=== PATIENT | female | born 1965 | race Caucasian/White ===

== ENCOUNTER 2023-10-31 09:09 | Outpatient (CLI) | payer OTHER, SELFPAY ==
--- NOTE | 2023-10-31 09:20 | XR_ITS ---
WS: [id number] KNEE RIGHT TECHNIQUE: 2 views of the right knee CLINICAL INFORMATION: KNEE PAIN COMPARISON: None. FINDINGS: Moderate to advanced tricompartmental arthritis worse in the medial joint compartment. Hypertrophic c hanges along the joint line. Hypertrophic patella. Advanced degenerative narrowing at the patellofemo ral articulation. Small suprapatellar effusion. Prepatellar soft tissue edema. Vascular calcification .. 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 Kellgren-Paramjit Classification: grade 4 (severe): large osteophytes, marked narrowing of joint spac e, severe sclerosis and definite deformity of bone ends
--- NOTE | 2023-10-31 09:20 | XR_ITS ---
WS: [id number] LUMBAR SPINE TECHNIQUE: 3 views of the lumbar spine CLINICAL INFORMATION: BACK PAIN COMPARISON: None. FINDINGS: Five [id number]-bhw-hwyzhxh lumbar vertebral bodies. Mild lumbar curve convex RIGHT. Osteopenia. Cholecystectomy clips. Pelvic phleboliths. Disc space leslie rowing worse L4-L5 and L5-S1. Moderate facet arthropathy in the lower lumbar spine. Slight retrolisth esis L3 on L4. Mild chronic anterior wedging in the lower thoracic spine. IMPRESSION: 1. 5 nonrib-bearing lumbar vertebral bodies. L5 is partially sacralized. 2. Disc space narrowing worse at L4-L5 and L5-S1. 3. Slight retrolisthesis L3 on L4. 4. Moderate facet arthropathy L4-L5 and L5-S1.
== END 2023-10-31 09:10 | disposition home or self-care (01) ==
LOC: RAD 09:15
PROVIDERS: Visit Provider Dermatology
DX: Z02.71 Encounter for disability determination (principal); M43.16 Spondylolisthesis, lumbar region; M47.817 Spondylosis without myelopathy or radiculopathy, lumbosacral region; M51.87 Other intervertebral disc disorders, lumbosacral region; M17.11 Unilateral primary osteoarthritis, right knee
CPT/HCPCS: 72100; 73560

== ENCOUNTER 2024-06-25 10:38 | Outpatient (CLI) | payer SELFPAY ==
--- NOTE | 2024-06-25 10:46 | XR_ITS ---
WS: [id number] XR chest 2V* [id number] REASON FOR EXAM: SHORTNESS OF BREATH FINDINGS: Moderate tortuosity and ectasia of the thoracic aorta. Normal heart size. Calcified granulomas disease in both hemithoraces. There are coarse reticular interstitial lung opacities in the medial right lower lung field on the PA view. Findings may be present posteriorly in the right lower lobe on the lateral. Chronicity of this abnormality is unknown without prior examinations for comparison. Moderate degenerative spondylosis in the thoracic spine. XR/XR chest 2V* [id number] IMPRESSION: Right lower lung abnormality of uncertain chronicity as above. This could repre sent a subacute pneumonitis.
== END 2024-06-25 10:39 | disposition home or self-care (01) ==
PROVIDERS: Visit Provider Nurse Practitioner Family
DX: J84.10 Pulmonary fibrosis, unspecified (principal); R91.8 Other nonspecific abnormal finding of lung field; M47.894 Other spondylosis, thoracic region; I77.810 Thoracic aortic ectasia
CPT/HCPCS: 71046

== ENCOUNTER 2024-09-01 10:59 | Outpatient (CLI) | payer MEDICAID, SELFPAY ==
--- NOTE | 2024-09-01 11:11 | XR_ITS ---
WS: [id number] XR chest 2V* [id number] REASON FOR EXAM: abnormal chst radiograph FINDINGS: Compared to the examination of 06/25/2024, the right lower lung opacities have resolved. Presumably th is represented a pneumonitis. No other interval change or new finding compared to 06/25/2024. XR/XR chest 2V* [id number] IMPRESSION: Previous abnormality resolved. No new abnormality.
== END 2024-09-01 11:00 | disposition home or self-care (01) ==
LOC: RAD 11:04
PROVIDERS: PCP Nurse Practitioner Family; Visit Provider Nurse Practitioner Family
DX: R91.8 Other nonspecific abnormal finding of lung field (principal)
CPT/HCPCS: 71046

== ENCOUNTER 2025-07-01 23:00 | Inpatient (IN) | payer MEDICAID, SELFPAY ==
[2025-07-01 23:03] VITALS: BP 117/71; PULSE 100; RESP 16; TEMP 36.6; O2SAT 97; BMI 53.7
--- OUTSIDE RECORDS SUMMARY | 2025-07-01 23:06 | XMS_ITS | Data Portability ---
Author Organization [facility] Address [address] [address] Care Team Providers Care Vocational Instructor Name Role Phone VELMA DUARTE Primary Care Provider [phone] Assessment No assessment recorded. Plan of Treatment Reminders Order Date Submit Date Provider Last Modified By Organization Details Last Modified Time Details Appointments None recorded. Lab HbA1c (hemoglobin A1c), blood [email or web address] [place] [address] Lab, [address] [facility], [facility] [place], [address], 12:45:28 iron + TIBC + ferritin, serum 2024 025 [facility], [address] [place] [address], [facility] [address] [place], [address], 06:00:31 HbA1c (hemoglobin A1c), blood 2024 025 [facility], [address] [facility], [facility] [address], [address], 5 08:36:24 lipid panel, blood 2024 025 [facility], [address] [facility], [facility] [place], [address], 5 13:24:17 TSH, serum or plasma 2024 025 [facility], [address] [facility], [address], [place], [address], 08:36:25 vitamin B12, serum 2024 025 [facility], [address] [facility] [address], [address], [place], [address], 06:00:33 CMP, serum or plasma 2024 025 [facility], [address], [address], [place], [address], 13:24:14 CBC 2024 025 [facility], [address] [facility], [address], [place], [address], 12:58:45 Referral pain management referral 2024 025 [email or web address] 2 Gerald Arellano , [address] [place] [address], [address], 13:52:05 physical therapist referral 2024 025 [email or web address] 2 [facility], [address] [facility], [address], [place], [address], 14:37:38 pain management referral 2024 025 [email or web address] 2 Gerald Golden , [address] [place] [address], [address], 15:08:43 Procedures None recorded. Surgeries None recorded. Imaging None recorded. Medication Orders gabapentin 300 mg capsule 2024 025 [facility], [address], [place], [address], 12:04:57 Zepbound 2.5 mg/0.5 mL subcutaneou s pen injector 2024 025 [facility], [address], [place], [address], 10:15:52 Patient TargetsNo targets recorded. Patient InstructionsNo instructions recorded. Reason for Referral Pain Management Referral for Lumbar radiculopathy Referring Physician: Velma Duarte [facility], Encounter Date: 01/19/2025 Pain Management Referral for Chronic primary low back pain Referring Physician: Velma Duarte [facility], Encounter Date: 04/29/2025 Physical Therapist Referral for Chronic primary low back pain Referring Physician: Velma Duarte [facility], Encounter Date: 04/29/2025 Results Created Date Observation Date Name Description Value Unit Range Abnormal Flag Note LastModifiedBy Organization Detail LastModifiedTime 01/20/2001/19/2025 CBC WBC 8.7 x10 4.0-10 .5 Not Available [facility] [address] [facility] 1, [place], [address], 01/19/2025 12:58:45 01/20/2001/19/2025 CBC RBC 4.70 x10 3.50-5 .50 Not Available [facility] [address] [facility], [place], [address], 01/19/2025 12:58:45 01/20/2001/19/2025 CBC HGB 15.2 g/dL 12.0-1 6.0 Not Available [facility] [address] [facility] 1, [place], [address], 01/19/2025 12:58:45 01/20/20 25 01/19/2025 CBC HCT 45.7 % 37.0-4 7.0 Not Available [facility] [address] [facility] 1, [place], [address], 01/19/2025 12:58:45 01/20/20 25 01/19/2025 CBC MCV 97.3 fL 80.0-9 9.9 Not Available [facility] [address] [facility], [place], [address], 01/19/2025 12:58:45 01/20/20 25 01/19/2025 CBC MCH 32.4 pg 27.0-3 2.0 high Not Available [facility] [address] [facility], [place], [address], 01/19/2025 12:58:45 01/20/20 25 01/19/2025 CBC MCHC 33.3 g/dL 32.0-3 6.0 Not Available [facility] [facility], [place], [address], 01/19/2025 12:58:45 01/20/20 25 01/19/2025 CBC RDW 13.2 % 11.5-1 4.5 Not Available [facility] [address] [facility] 1, [place], [address], 01/19/2025 12:58:45 01/20/20 25 01/19/2025 CBC plt 157.4 x10 140.0- 451.0 Not Available [facility] [address] [facility] Neva [facility] 1, [place], [address], 01/19/2025 12:58:45 01/20/20 25 01/19/2025 CBC lymphocytes % 37.7 % 20.0-5 0.0 Not Available [facility] [address] [facility], [place], [address], 01/19/2025 12:58:45 01/20/20 25 01/19/2025 CBC granulcytes % 50.4 % 30.0-7 0.0 Not Available [facility] [address] [facility], [place], [address], 01/19/2025 12:58:45 01/20/20 25 01/19/2025 CBC monocytes % 10.8 % 2.0-16 .0 Not Available [facility] [address] [address], [place], [address], 01/19/2025 12:58:45 01/20/20 25 01/19/2025 CBC granulcytes# 4.4 x10 Not Kristyn ilable [facility] [address] [address], [place], [address], 01/19/2025 12:58:45 01/20/20 25 01/19/2025 CBC lymphocytes # 3.3 x10 Not Available [facility] [address] [address], [place], [address], 01/19/2025 12:58:45 01/20/20 25 01/19/2025 CBC monocytes # 0.9 x10 Not Avai lable [facility] [address] [address], [place], [address], 01/19/2025 12:58:45 01/20/20 25 01/19/2025 HBA1C hemaglobin A1C 7.3 4.2-6. 5 high Not Available [facility] [address] [address], [place], [address], 01/19/2025 13:08:35 01/20/20 25 01/19/2025 CMP (FEMA LE) glucose 172.0 mg/dL 60.0-9 9.0 high Not Available [facility] [address] [address], [place], [address], 01/19/2025 13:24:14 01/20/20 25 01/19/2025 CMP (FEMA LE) BUN (blood urea nitrogen) 11.0 mg/dL 10.0-2 6.0 Not Available [facility] [address] [facility] [address], [place], [address], 01/19/2025 13:24:14 01/20/20 25 01/19/2025 CMP (FEMA LE) creatinine (serum) 0.9 mg/dL 0.4-1. 5 Not Available [facility] [address] [facility] [address], [place], [address], 01/19/2025 13:24:14 01/20/20 25 01/19/2025 CMP (FEMA LE) BUN/creatini ne ratio 12.22 ratio Not Available [facility] [address] [address], [place], [address], 01/19/2025 13:24:14 01/20/20 25 01/19/2025 CMP (FEMA LE) eGFR calculated 68.1 Not Available [facility] [address] [facility] [address], [place], [address], 01/19/2025 13:24:14 01/20/20 25 01/19/2025 CMP (FEMA LE) total protein 8.2 g/dL 6.0-8. 5 Not Available [facility] [address] [address], [place], [address], 01/19/2025 13:24:14 01/20/20 25 01/19/2025 CMP (FEMA LE) total bilirubin 1.1 mg/dL 0.2-1. 3 Not Available [facility] [address] [address], [place], [address], 01/19/2025 13:24:14 01/20/20 25 01/19/2025 CMP (FEMA LE) albumin 4.3 g/dL 3.5-5. 5 Not Available [facility] [address] [facility] [address], [place], [address], 01/19/2025 13:24:14 01/20/20 25 01/19/2025 CMP (FEMA LE) globulin 3.9 calc Not Available [facility] [address] [facility] 1, [place], [address], 01/19/2025 13:24:14 01/20/20 25 01/19/2025 CMP (FEMA LE) AST (SGOT) 54.0 U/L 0.0-46 .0 high Not Available [facility] [address] [facility] 1, [place], [address], 01/19/2025 13:24:14 01/20/20 25 01/19/2025 CMP (FEMA LE) altv (SGPT) 53.0 U/L 13.0-6 9.0 normal Not Available [facility] [address] [facility] 1, [place], [address], 01/19/2025 13:24:14 01/20/20 25 01/19/2025 CMP (FEMA LE) A/G ratio 1.1 ratio Not Available [facility] [address] [facility] 1, [place], [address], 01/19/2025 13:24:14 01/20/20 25 01/19/2025 CMP (FEMA LE) ALP phos 60.0 U/L 30.0-1 40.0 normal Not Available [facility] [address] [facility] 1, [place], [address], 01/19/2025 13:24:14 01/20/20 25 01/19/2025 CMP (FEMA LE) calcium 10.0 mg/dL 8.4-10 .5 Not Available [facility] [address] [facility] 1, [place], [address], 01/19/2025 13:24:14 01/20/20 25 01/19/2025 CMP (FEMA LE) sodium 139.0 mmol/ L 136.0- 145.0 Not Available [facility] [address] [facility] [address], [place], [address], 01/19/2025 13:24:14 01/20/20 25 01/19/2025 CMP (FEMA LE) potassium 3.9 mmol/ L 3.5-5. 1 Not Available [facility] [address] [facility] [address], [place], [address], 01/19/2025 13:24:14 01/20/20 25 01/19/2025 CMP (FEMA LE) chloride 103.0 mmol/ L 98.0-1 10.0 normal Not Available [facility] [address] [facility] [address], [place], [address], 01/19/2025 13:24:14 01/20/20 25 01/19/2025 CMP (FEMA LE) C02 26.0 mmol/ L 22.0-3 1.0 Not Available [facility] [address] [facility] [address], [place], [address], 01/19/2025 13:24:14 01/20/20 25 01/19/2025 CMP (FEMA LE) anion gap 10.0 calc Not Available [facility] [address] [facility] [address], [place], [address], 01/19/2025 13:24:14 01/20/20 25 01/19/2025 CMP (FEMA LE) osmolality 290.3 calc Not Available [facility] [address] [facility] [address], [place], [address], 01/19/2025 13:24:14 01/20/20 25 01/19/2025 LIPID PROFI LE (FEMA LE) cholesterol 278.0 mg/dL 0.0-20 0.0 high Not Available [facility] [address] [facility] [address], [place], [address], 01/19/2025 13:24:17 01/20/20 25 01/19/2025 LIPID PROFI LE (FEMA LE) trig 173.0 mg/dL 0.0-15 0.0 high Not Available [facility] [address] [facility] [address], [place], [address], 01/19/2025 13:24:17 01/20/20 25 01/19/2025 LIPID PROFI LE (FEMA LE) HDL - direct 62.0 mg/dL >40.0 Not Available [facility] [address] [facility] [address], [place], [address], 01/19/2025 13:24:17 01/20/20 25 01/19/2025 LIPID PROFI LE (FEMA LE) VLDL - direct 34.6 mg/dL Not Available [facility] [address] [address], [place], [address], 01/19/2025 13:24:17 01/20/20 25 01/19/2025 LIPID PROFI LE (FEMA LE) LDL - direct 181.4 mg/dL 0.0-13 0.0 high Not Available [facility] [address] [facility] [address], [place], [address], 01/19/2025 13:24:17 01/20/20 25 01/19/2025 TSH TSH 1.44 uIU/m L 0.49-3 .82 Not Available [facility] [address] [facility] [address], [place], [address], 01/19/2025 13:29:46 01/20/20 25 01/20/2025 IRON, TIBC AND JULIANA TIN PANEL iron, total 104 mcg/d L 45-160 normal Not Available [facility] [address] [address] [place], [address], 01/20/2025 06:00:31 01/20/20 25 01/20/2025 IRON, TIBC AND JULIANA TIN PANEL iron binding capacity 390 mcg/d L_(ca lc) 250-45 0 normal Not Available [facility] [address], [address], 01/20/2025 06:00:31 01/20/2001/20/2025 IRON, TIBC AND JULIANA TIN PANEL % saturation 27 %_(ca lc) 16-45 normal Not Available [facility] [address], [address], 01/20/2025 06:00:31 01/20/2001/20/2025 IRON, TIBC AND JULIANA TIN PANEL ferritin 129 NG/mL 16-232 normal Not Available [facility] [address], [address], 01/20/2025 06:00:31 01/20/20 25 01/20/2025 VITAM IN B12 vitamin B12 353 pg/mL 200-11 00 normal Pleas e Note: Altho ugh the refer ence range for vitam in B12 is 200-1 100 pg/mL , it has been repor jarrod that betwe en 5 and 10% of patie nts with value s betwe en 200 and 400 pg/mL may exper ience neuro psych iatri c and hemat ologi c abnor malit ies due to occul t B12 defic iency ; less than 1% of patie nts with value s above 400 pg/mL will have sympt oms. Not Available [facility] [address] [address] [place], [address], 01/20/2025 06:00:33 04/29/2004/29/2025 HBA1C hemaglobin A1C 5.2 4.2-6. 5 Not Available [facility] [address] [facility] 1, [place], [address], 04/29/2025 12:46:01 Result Notes None recorded. Problems Name Problem SNOMED Code Status Onset Date Resolution Date Notes Provider Name and Address Organization Details Recorded Time Lumbar radiculopathy 132654258 Active 2024 Velma Duarte MD [address] [place] [address], [address], [facility] 12:35:22 Pain of knee region 1226837762 Active 2024 Velma Duarte MD [address] [place] [address], [address], [facility] 12:35:29 Morbid obesity 142326630 Active 2024 Velma Duarte MD [address] [place] [address], [address], [facility] 12:35:26 Restless legs syndrome 24138797 Active 2024 Velma Duarte MD [address] [place] [address], [address], [facility] 12:35:35 Fatigue 60645016 Active 2024 Velma Duarte MD [address] [place] [address], [address], [facility] 12:35:57 Well controlled type 2 diabetes mellitus 328177372 Active 2024 Velma Duarte MD [address] [place] [address], [address], [facility] 12:35:50 Hyperglycemia due to diabetes mellitus 304568906 Active 2024 Velma Duarte MD [address] [place] [address], [address], [facility], [place]. 12:07:11 Chronic primary low back pain Active 2024 Velma Duarte MD [address] [place] [address], [address], [facility], Hussein 12:10:57 Essential hypertension 72553623 Active 2024 Velma Duarte MD [address] [place], [address], [facility], Hussein 21:08:15 Problem Notes None recorded. Procedures Surgical History Date Name Laterality Status Provider Name and Address Organization Details Recorded Time cholecystectomy completed [facility], Hussein 01/19/2025 11:27:42 [facility] 11:27[facility]59 Imaging Results None recorded. Procedure Notes None recorded. Medical Equipment None Reported. Allergies No known drug allergies Medications Name Sig Start Date Stop Date Status Note LastModified by Organization Details LastModified Time atorvastati n 20 mg tablet TAKE 1 TABLET BY MOUTH ONCE DAILY active Not Available Not Available No t Available famotidine 10 mg tablet Take 1 tablet every day by oral route. active Not Available Not Available No t Available lisinopril 20 mg-hydrochl orothiazide 12.5 mg tablet TAKE 1 TABLET BY MOUTH ONCE DAILY active Not Available Not Available No t Available azithromyci n 250 mg tablet TAKE 2 TABLETS BY MOUTH TODAY, THEN TAKE 1 TABLET DAILY FOR 4 DAYS DIRECTED 01/19 completed Not Available Not Available Not Available prednisone 20 mg tablet TAKE 2 TABLETS BY MOUTH ONCE DAILY 01/19 completed Not Available Not Available Not Available gabapentin 300 mg capsule TAKE 2 CAPSULES BY MOUTH ONCE DAILY AT BEDTIME active Not Available Not Available No t Available Advil 200 mg tablet Take 2 tablets twice a day by oral route. active Not Available Not Available No t Available cyclobenzap rine 5 mg tablet TAKE 1 TO 2 TABLETS BY MOUTH THREE TIMES DAILY NEEDED 01/19 completed Not Available Not Available Not Available Ozempic 0.25 mg or 0.5 mg (2 mg/1.5 mL) subcutaneou s pen injector 0.25mg weekly x 4 weeks then increase to 0.5mg weekly x 4 weeks 04/29 completed Not Available Not Available Not Available Ozempic 1 mg/dose (4 mg/3 mL) subcutaneou s pen injector INJECT 1MG UNDER THE SKIN ONCE WEEKLY 2024 active Not Available Not Available Not Avai lable Ozempic 0.25 mg or 0.5 mg (2 mg/3 mL) subcutaneou s pen injector INJECT 0.25MG SUB-Q ONCE WEEKLY FOR 4 WEEKS THEN INCREASE TO 0.5MG SUB-Q ONCE WEEKLY FOR 4 WEEKS 04/29 completed Not Available Not Available Not Available Zepbound 2.5 mg/0.5 mL subcutaneou s pen injector Inject 2.5 mg every week by subcutane ous route. 01/20 completed Not Available Not Available Not Available Vitals Date Recorded Body weight Body mass index (BMI) Body height Body temperature Heart rate Oxygen saturation Oxygen saturation in Arterial blood by Pulse oximetry Systolic And Diastolic Provider Name and Address Organization Details Last Updated DateTime 5 884101. 95 g 62.6 kg/m2 170.18 cm 97.6 [degF] 110 /min 97 % 97 % 220/110 mm[Hg] [facility] 5 11:14:09 Date Recorded Body height Body mass index (BMI) Body weight Body temperature Oxygen saturation Oxygen saturation in Arterial blood by Pulse oximetry Heart rate Systolic And Diastolic Provider Name and Address Organization Details Last Updated DateTime 5 170.18 cm 61.4 kg/m2 408611. 21 g 97.8 [degF] 97 % 97 % 91 /min 150/90 mm[Hg] MONICA [facility] 5 11:15:19 Date Recorded Body height Body mass index (BMI) Body weight Oxygen saturation Oxygen saturation in Arterial blood by Pulse oximetry Heart rate Systolic And Diastolic Provider Name and Address Organization Details Last Updated DateTime 5 170.18 cm 57.9 kg/m2 405016. 18 g 97 % 97 % 106 /min 110/75 mm[Hg] Alejandra Ruiz [facility] 11:57:16 Social History Question Answer Notes LastModified by GuiaBolso Details LastModified Time Tobacco Smoking Status Never [facility]oker [facility] 01/19/2025 11:26:13 Which Illicit Or Recreational Drugs Have You Used? Marijuana Information not available 01/19/2025 What Is The Highest Grade Or Level Of School You Have Completed Or The Highest Degree You Have Received? [id number] [email or web address] Information not available 01/19/2025 What Was The Date Of Your Most Recent Tobacco Screening? 01/19/2025 [email or web address] Information not available 01/19/2025 Have You Recently Traveled Abroad? No [email or web address] Information not available 01/19/2025 Sex: Unknown Functional Status Question Answer Note LastModified by GuiaBolso Details LastModified Time Do you use any illicit or recreational drugs? Yes smokes and gummy Information not available 01/19/2025 What is your level of alcohol consumption? None [email or web address] Information not available 01/19/2025 Are you able to care for yourself independently? Yes Information not available 01/19/2025 Mental Status Question Answer Note LastModified by Organization D etails LastModified Time Do you feel stressed (tense, restless, nervous, or anxious, or unable to sleep at night)? [id number] [email or web address] Information not available 01/19/2025 Family History Relationship Description Onset Age of this Age Resolved Age Notes LastModified by Organization Details LastModified Time Father Heart disease Not available 2024 11:24:25 Mother Disease of liver kidney diseas e Not available 01/19/2025 11:25:06 Medical History Condition Response Coronary Artery Disease N Other N Gout N Kidney Stones N Blood Diseases N Hyperthyroidism N Breast Cancer N Blood Transfusion N Depression Y COPD N Lung Disease N Hypothyroidism N Developmental or Behavioral Disorders N Defects or Inherited Disease N Breast Problem N Difficulty Swallowing N Anesthesia Complications N Meniere's disease N Anxiety Disorder Y Muscle, Joint, or Bone Problems Y Vision or Eye Problems N Arthritis Y Polyps N Infertility N Cancer N Varicosities N Stroke N Endometriosis N Bladder or Kidney Problems N High Cholesterol N Liver Disease N Headaches N Fibromyalgia N Kidney Disease N Allergies/Hayfever N Heart Problems N Ear or Hearing Problems N Hospitalizations N Thyroid Problems N GI Problems N ADD/ADHD N Skin Problems N Eating Disorder N Anemia N Constipation N Mental Illness N Ovarian Cancer N Diabetes N Bedwetting N Seizures/Epilepsy N Tuberculosis N Eczema N Diverticulitis N Abuse/Domestic Violence N Asthma N Reflux/GERD N Hepatitis N Heart Disease N Pulmonary Embolism N Pre-Eclampsia N Hypertension Y Chronic Ear Infections N Osteoporosis N Chicken Pox Y Autism Spectrum Disorder (ASD) N Thrombophilias N Gynecological HistoryNo gynecological history recorded. Obstetrics History GPAL:G 0 P 0 0 0 0 Past Encounters Encounter ID Performer Location Encounter Start Date Encounter Closed Date Diagnosis/Indication Diagnosis SNOMED-CT Code Diagnosis ICD10 Code Diagnosis IMO Codes Diagnosis Note [id number] Velma Duarte MD [facility] ([facility]) [address] [place] [address] 01/19/2025 11:04:41 01/19/2025 13:11:51 Lumbar radiculopathy 341405914 M54.16 [id number] Patient is wanting to do injections and I think doing targeted injections would provide her the most benefit. Will send referral to pain management for those. Pain of knee region 1003 048200 M25.561 M25.562 G89.29 [id number] Patient is having chronic arthritis. Patient would benefit from weight loss to help manage this better. Patient may want to consider evaluation for knee replacemen ts. I would recommend weight loss first. Morbid obesity 920304437 E66.01 75614 Will check cholestero l today. The patient would meet criteria to start Zepbound injections . Discussed this with the patient and the patient would like to proceed. Restless l egs syndrome 50293956 G25.81 56409 Check iron and ferritin levels for reversible causes of restless legs. Will start gabapentin to help with her low back pain as well as her restless leg symptoms. Hyperglycemia 97340799 R 73.9 96954 Patient has had some elevated glucose readings in the past so we will check an A1c today. Fatigue 62742668 R53.83 [id number] No labs to work on her underlying fatigue and general health brianda walker. [id number] Velma Duarte MD [facility] ([facility]) [address] [place] [phone] 02/02/2025 11:06:22 02/02/2025 11:35:19 Lumbar radiculopathy 370811069 M54.16 [id number] Discussed options and the patient was open to increasing the gabapentin throughout the day and see if this improves her pain. Management referral is pending, however patient is unsure if she wants to proceed with injections at this time. Continue to work on weight loss. Well contr olled type 2 diabetes mellitus 185066866 E11.65 [id number] Patient is tolerating Ozempic well. Will continue to titrated up. Will repeat A1c in 3 months. Reinforced diabetic diet. [id number] Velma Duarte MD [facility] ([facility]) [address] [place] [phone] 04/29/2025 11:44:50 04/29/2025 13:02:56 Hyperglycemia due to diabetes mellitus 533832660 E11.65 [id number] Check A1c. Continue current medication s. Discussed the side effects of Ozempic, but the patient states that is not severe enough for her to stop medication at this time. Chronic pr imary low back pain 6693453793 7100 M54.59 G89.29 [id number] Discussed pain management strategies . Recommend that we do physical therapy and we will go ahead and send referral to pain management for injections . Essential hypertension 78978110 I10 65547 Continue current medication s. Monitor blood pressure. Health Concerns Section Related Observation LastModified by Organization Detai ls LastModified Time None Recorded Concern Status LastModified by Organization Details LastModified Time None Recorded Advance Directives Directive None Recorded Payers Insurance Date Sequence Insurance Name Policy Number Policy Landa Covered Member ID Landa Member ID Guarantor Name 05/05/2025 1 [facility] [facility] - [place] ESMER Huffman [id number] Katina Huffman Notes Date Note Type Note Provider Name and Address Organization Details Recorded Time 01/19/2025 text/html Annual WellnessReported by PatientSocial/Behavior al HistoryFor diet and nutrition, patient reportshigh carbohydrate meals. For physical activity, patient reportsdoes not exercise on a regular basisandpoor physical condition. For fracture risk, patient reportsno history of fractures. For additional lifestyle factors, patient reportsno tobacco useandno alcohol intake.Mental Status:For depression risk, patient reportssleep disturbances or insomnia,agitated,loss of energy, andfeelings of worthlessness or guiltbut reportsnever feels sad, empty, or tearful,no loss of interest in activities,no significant changes in weight,no thoughts of suicide,no history of depression, andno history of mood disorders.Functional AbilityFor hearing, patient reportsno loss of hearing. For vision, patient reportsno vision problems. This is a 59-year-old female that [facility] to [facility]. The patient was previously seen by [facility]. The patient has a history of chronic back pain that radiates down his left leg as well as chronic pain of both knees. Patient also reports that she has been having significant issues with restless legs. The patient also has been having frequent fatigue. The patient states that she is not able to walk long distance because of her pain. She has a known history of elevated blood pressure that typically is managed well on current medications. Velma Duarte MD [address] [place] [address], [phone], [facility] 01/21/2025 11:48:58 02/02/2025 text/html Pt is here for 2 week f/u. Pt states she is doing well on ozempic, she is down 8lbs.Patient reports that her restless legs are significantly better on the gabapentin. Patient still having radicular-like pain that has not been improved significantly with the gabapentin. Velma Duarte MD [address] [place] [address], [phone], [facility] 02/02/2025 12:36:56 04/29/2025 text/html [facility] Pt is here for f/u. Pt states she is doing well on ozempic, she is down 22lbs. she does report some increased side effects after increasing to the 1 mg dose. Patient states that her blood pressure is doing well on current medications. Patient does have some increased in pain in her low back. Velma Duarte MD [address] [place] [address], [phone], [facility], Hussein 05/03/2025 21:08:31 OBGyn Episode No OBEpisode recorded.
--- OUTSIDE RECORDS SUMMARY | 2025-07-01 23:06 | XMS_ITS | Patient Health Record ---
Author Organization [facility] Address [address] [place] [address] Care Team Providers Care Mounter Saxophones Name Role Phone DR. PIERRE APONTE Primary Care Provide r [phone] Allergies No Known Allergies Reason For Referral No Information Medications Medication SIG (Take, Route, Frequency, Duration) Notes Start Date End Date Status clonazePAM 0.5 MG Tablet 1 tablet at bed time Orally Once a day prn; Duration: 10 days 07/07/2021 Active Lisinopril-hydroCHLOROthia zide 20-12.5 MG Tablet Take 1 tablet by mouth once daily; Duration: 90 Active Immunizations Vaccine Route Administration Date Status Comme nts John Covid-19 Vaccine IM Intramuscular 11/16/2020 Admin istered Social History Social History Additional Details Category Social Info Options Details Migrated Social History Migrated Social History (Do you drink alcohol?):NO (Tobacco Use:): Are you a: never tobacco user, Do you use chewing tobacco? No Section Notes: Patient reports she smokes m arijuana every night before bedtime Patient reports she smokes m arijuana every night before bedtime Patient reports she smokes m arijuana every night before bedtime Patient reports she smokes m arijuana every night before bedtime Patient reports she smokes m arijuana every night before bedtime Problems Problem Type SNOMED Code ICD Code Onset Dates Problem Status W/U Status Risk Notes Problem Morbid obesity (disorder) (769451956) Morbid (severe) obesity due to excess calories (E66.01) Active confirmed Problem Chronic pain (45999154) Other chronic pain (G89.29) Active confirmed Problem Lipoprotein above reference range (finding) (644898651) Elevated Lipoprotein(a) (E78.41) Active confirmed Problem Body mass index 40+ - morbidly obese (399543205) Body mass index [BMI] 50.0-59.9, adult (Z68.43) Active confirmed Problem Essential hypertension (94624259) Essential hypertension (I10) Active confirmed Problem Sciatica (62317809) Right sided sciatica (M54.31) Active confirmed Problem Anxiety (11059857) Anxiety (F41.9) Active confirmed Problem Body mass index 40+ - morbidly obese (310682624) Body mass index (BMI) 60.0-69.9, adult (Z68.44) Active confirmed Plan Of Treatment No Information Insurance Providers Payer Name Payer Address Payer Phone Subscriber Number Group Number Insured Name Patient Relationship to Insured Coverage Start Date Coverage End Date COVID19 HRSA Uninsured Testing Treatment [address] [address] [place] [phone] [id number] EVANSLYNDSAY Ferrer Self - patient is the insured 1 1 Medical (General) History Medical History History ICD Code hypertension back pain Surgical History Surgery Date(Month/Year) gallbladder 2006 x 3
--- NOTE | 2025-07-01 23:22 | ECG_ITS ---
[facility] Test Date: 2025-07-01 Pat Name: Katina Huffman Department: Room: Gender: Female Top Cager: : 1965 Requested By: Camille Ndiaye Order Number: [id number] Chata MD: Juan Ramon Mendez M.D. Measurements Intervals [place] Rate: 80 P: 68 [place]: 163 QRS: -67 QRSD: 164 T: 74 QT: 447 QTc: 517 Interpretive Statements SINUS RHYTHM RIGHT BUNDLE BRANCH BLOCK [120+ ms QRS DURATION, UPRIGHT V1, 40+ ms S IN I/aVL/V4/V5/V6] LEFT ANTERIOR FASCICULAR BLOCK [QRS AXIS <= -45, QR IN I, RS IN II] No previous ECG available for comparison Electronically Signed On 07-03-2025 13:13:45 COMPOSITION PROFESSOR by Juan Ramon Mendez M.D. [email or web address]
[2025-07-01 23:28] VITALS: BP 117/71; PULSE 100; RESP 16; TEMP 36.6; O2SAT 97
--- NOTE | 2025-07-01 23:55 | CTR_ITS ---
PROCEDURE INFORMATION: Exam: CT Head Without Contrast Exam date and time: 07/02/2025 12:39 AM Age: 60 years old Clinical indication: Dizziness and visual disturbance; Additional info: Vertigo, difficulty walking, vision changes TECHNIQUE: Imaging protocol: Computed tomography of the head without contrast. Radiation optimization: All CT scans at this facility use at least one of these dose optimization techniques: automated exposure control; mA and/or kV adjustment per patient size (includes targeted exams where dose is matched to clinical indication); or iterative reconstruction. COMPARISON: No relevant prior studies available. RADIATION DOSE METRICS: Total DLP (mGy-cm): 1111.55 FINDINGS: Brain: No acute intracranial hemorrhage. No midline shift or mass effect. No acute territorial infarct. Cerebral ventricles: The ventricles and sulci are commensurate with age. Paranasal sinuses: Visualized sinuses are unremarkable. No fluid levels. Mastoid air cells: Visualized mastoid air cells are well aerated. Bones: Unremarkable. No acute fracture. Soft tissues: Unremarkable. CT/CT head wo con* [id number] IMPRESSION: No acute intracranial hemorrhage. No midline shift or mass effect.
--- NOTE | 2025-07-01 23:56 | W.ED.FALL ---
HPI - Fall General: Chief Complaint: Fall Stated Complaint: odd feeling in head, passed out and fell Time Seen by Provider: 07/01/25 23:09 History of Present Illness: Patient is a 60-year-old female with past medical history of morbid obesity, diabetes, high blood pressure presents with a chief complaint of spinning sensation upon waking associated with some vision changes. Patient states that her head felt foggy and she felt like she had spots coming in and out of her vision. Patient states that she ambulated to the bathroom. Patient felt nauseated, vomited once and had an episode of diarrhea which has not been uncommon since she started taking Ozempic about 4 months ago. She states that she got up to ambulate, felt dizzy, had a syncopal event. She is not sure if she hit her head. She denies neck pain or new back pain though she reports chronic back pain. She reports right knee pain. Patient states that symptoms started at 1400 today after waking up. She states she went to bed at about 3 AM this morning and felt fine at that time. At this time, vision changes, dizziness have resolved but after she fell, she states that she has been experiencing persistent tinnitus, difficulty ambulating. Per family at bedside, patient has been stumbling to the left side. Patient has not had chest pain, shortness of breath, palpitations before falling or syncopized in. She denies abdominal pain. No dysuria, hematuria, blood in stool. She denies any focal numbness, weakness, sensory changes, difficulty with speech, swallowing, difficulty with coordination. Patient does not have a history of MO, CHF or CVA. She does not take anticoagulants. Related Data Allergies Allergy/AdvReac Type Severity Reaction Status Date / Time No Known Allergies Allergy Verified 07/01/25 23:13 Physical Exam Narrative: EXAM NARRATIVE: Vital signs were reviewed. Patient is alert and oriented. No injury noted to scalp or face. No pain w/palpation of C spine. Patient is breathing comfortably, no increased WOB or accessory muscle use. SpO2 is above 95% on RA. Patient has clear lungs b/l, no rhonchi, wheezing or crackles. No hypotension or tachycardia. Abdomen is soft, nondistended and nontender. Patient is moving all extremities, no deformity or gross injury. She has pain w/palpation of R knee. No lower extremity edema or asymmetry. Neuro: Awake, alert, strength equal bilaterally. No drift. No extinction. No sensory deficit. Able to perform FNF, heel to norton. Deferred ambulation. CRANIAL NERVES: II: Pupils equal and reactive, III, IV, : EOM intact, no gaze preference or deviation, no nystagmus. V: normal sensation in V1, V2, and V3 segments bilaterally VII: no asymmetry, no nasolabial fold flattening VIII: normal hearing to speech IX, X: normal palatal elevation, no uvular deviation XI: 5/5 head turn and 5/5 shoulder shrug bilaterally XII: midline tongue protrusion Course Vital Signs: Vital signs: Vital Signs Temperature 97.9 F 07/01/25 23:28 Pulse Rate 100 07/01/25 23:28 Respiratory Rate 16 07/01/25 23:28 Blood Pressure 117/71 07/01/25 23:28 Pulse Oximetry 97 07/01/25 23:28 Oxygen Delivery Me thod Room Air 07/01/25 23:28 MDM - Fall Medical Decision Making 60-year-old female presents with a chief complaint of vertigo, associated with nonspecific, poorly described vision changes, difficulty with ambulating and a syncopal event. Differential diagnosis includes but is limited to, CVA, TIA, ICH, concussion, cardiogenic syncope, vasovagal syncope, orthostatic hypotension, dehydration, underlying infection such as a urinary tract infection, other. On exam she is interocular stable and nontoxic-appearing. Last known normal was 3 AM this morning. At this time, patient does not have neurologic deficits although I did defer ambulation as she is a fall risk. Patient's symptoms may still represent CVA/TIA. Patient was evaluated blood work including CBC, CMP, troponin, coags, UA, EKG, x-ray of the knee, CT of her head, CT a head and neck. Patient has a normal white blood cell count and is not anemic. Of note, she has a creatinine 4.4 and an elevated anion gap. To patient's knowledge, she does not have kidney disease and this is likely new, although I do not have a comparison. Due to this, CTA head and neck were canceled. As most symptoms have now resolved, I have low suspicion for large vessel occlusion, my neurologic exam was nonfocal. Will proceed with CT head. Patient will require MRI for TIA/vertigo workup and further workup for impaired kidney function. Patient was admitted. Lab Data 07/01/25 23:20 07/01/25 23:[address] 07/01/25 23:55 IMPRESSION: No acute intracranial hemorrhage. No midline shift or mass effect. Knee X-Ray 07/01/25 23:57 IMPRESSION: 1. Severe joint space narrowing of the medial compartment. Tricompartmental osteophytic spurring. 2. No acute fracture or dislocation. Laboratory Results WBC 9.57 10^3/uL (3.29-11.43) 07/01/25 23:20 RBC 4.31 10^6/uL (3.85-5.65) 07/01/25 23:20 Hgb 13.90 g/dL (11.27-16.99) 07/01/25 23:20 Hct 40.5 % (36-47) 07/01/25 23:20 MCV 94.0 fl (85-98) 07/01/25 23:20 MCH 32.3 pg (27-33) 07/01/25 23:20 MCHC 34.3 g/dL (30-55) 07/01/25 23:20 RDW 13.4 % (12.1-15.1) 07/01/25 23:20 Plt Count 150 10^3/cmm (157-399) L 07/01/25 23:20 MPV 12.5 fL (7.4-10.4) H 07/01/25 23:20 Neut % (Auto) 52.8 % 07/01/25 23:20 Lymph % (Auto) 32.0 % 07/01/25 23:20 [place] % (Auto) 12.5 % 07/01/25 23:20 Eos % (Auto) 1.8 % 07/01/25 23:20 Baso % (Auto) 0.6 % 07/01/25 23:20 Neut # (Auto) 5.05 10^3/uL (1.8-7.7) 07/01/25 23:20 Lymph # (Auto) 3.1 10^3/uL (0.8-4.8) 07/01/25 23:20 [place] # (Auto) 1.2 10^3/uL (0.2-0.9) H 07/01/25 23:20 Eos # (Auto) 0.2 10^3/uL (0.0-0.8) 07/01/25 23:20 Baso # (Auto) 0.1 10^3/uL (0.0-0.1) 07/01/25 23:20 Nucleated RBC % (auto) 0 % 07/01/25 23:20 Nucleated RBCs # 0.0 /100WBC 07/01/25 23:20 PT 13.30 SECONDS (12.1-14.9) 07/01/25 23:20 INR 0.95 (0.8-1.2) 07/01/25 23:20 Sodium 139 mmol/L (136-145) 07/01/25 23:20 Potassium 3.6 mmol/L (3.5-5.1) 07/01/25 23:20 Chloride 98 mmol/L (98-107) 07/01/25 23:20 Carbon Dioxide 19 mmol/L (22-29) L 07/01/25 23:20 Anion Gap 25.6 (5-19) H 07/01/25 23:20 BUN 54 mg/dL (8-23) H 07/01/25 23:20 Creatinine 4.4 mg/dL (0.5-0.9) H 07/01/25 23:20 GFR Calculation 10.2 mL/min (90-130) L 07/01/25 23:20 Glucose 107 mg/dL (65-115) 07/01/25 23:20 Calculated Osmolality 303 mOsm/kg (285-295) H 07/01/25 23:20 Calcium 10.2 mg/dL (8.5-10.5) 07/01/25 23:20 Total Bilirubin 1.3 mg/dL (0.15-1.2) H 07/01/25 23:20 AST 34 U/L (0-32) H 07/01/25 23:20 ALT 38 U/L (0-33) H 07/01/25 23:20 Alkaline Phosphatase 57 U/L (35-105) 07/01/25 23:20 Troponin T Baseline 19 ng/L (0-10) H 07/01/25 23:20 Total Protein 7.5 g/dL (6.6-8.7) 07/01/25 23:20 Albumin 4.2 g/dL (3.5-5.2) 07/01/25 23:20 Globulin 3.3 g/dL (1.3-4.6) 07/01/25 23:20 All radiology interpretation(s) finalized by discharge EKG Data EKG 1: Interpretation: Sinus rhythm with a heart rate of 80, left axis deviation, wide QRS, normal QT/QTc, no STEMI. Discharge Plan Discharge Patient Disposition: Admitted As Inpatient Clinical Impression: Fall, Syncope, Vertigo, Difficulty walking, JAI (acute kidney injury) Condition: Stable Coding Level of Care Code ED Tare Worker for Charles Woodruff
--- NOTE | 2025-07-01 23:57 | XRR_ITS ---
PROCEDURE INFORMATION: Exam: XR Right Knee Exam date and time: 07/01/2025 11:58 PM Age: 60 years old Clinical indication: Injury or trauma; Fall; Blunt trauma; Knee; Right; Additional info: Fall/knee pain TECHNIQUE: Imaging protocol: Radiologic exam of the right knee. Views: 3 views. COMPARISON: CR XR knee RT 1-2V [id number] 10/31/2023 9:30 AM FINDINGS: Bones/joints: Severe joint space narrowing of the medial compartment. Tricompartmental osteophytic spurring. Diffuse osseous demineralization. No acute fracture or dislocation. Soft tissues: Normal. XR/XR knee RT 3V* [id number] IMPRESSION: 1. Severe joint space narrowing of the medial compartment. Tricompartmental osteophytic spurring. 2. No acute fracture or dislocation.
[2025-07-02] VITALS (11 sets, daily range): BP systolic 90–100; BP diastolic 57–70; PULSE 65–85; RESP 16–20; TEMP 36.4–36.8; O2SAT 91–99; BMI 54.8
[2025-07-02 00:04] LABS: Hematocrit 40.5 % (36-47); Hemoglobin 13.90 g/dL (11.27-16.99); Mean Corpuscular HGB Conc 34.3 g/dL (30-55); Mean Corpuscular Hemoglobin 32.3 pg (27-33); Mean Corpuscular Volume 94.0 fl (85-98); Nucleated Red Blood Cells % 0 %; Platelet Count 150 10^3/cmm (157-399); Red Blood Count 4.31 10^6/uL (3.85-5.65); White Blood Count 9.57 10^3/uL (3.29-11.43)
[2025-07-02 00:15] LABS: INR 0.95 (0.8-1.2); Prothrombin Time 13.30 SECONDS (12.1-14.9)
[2025-07-02 00:21] LABS: Troponin(5th) Baseline 19 ng/L (0-10)
[2025-07-02 00:22] LABS: Alanine Aminotransferase 38 U/L (0-33); Albumin Level 4.2 g/dL (3.5-5.2); Alkaline Phosphatase 57 U/L (35-105); Anion Gap 25.6 (5-19); Aspartate Amino Transferase 34 U/L (0-32); Blood Urea Nitrogen 54 mg/dL (8-23); Calcium 10.2 mg/dL (8.5-10.5); Carbon Dioxide 19 mmol/L (22-29); Chloride 98 mmol/L (98-107); Globulin 3.3 g/dL (1.3-4.6); Glucose 107 mg/dL (65-115); Osmolality Calculated 303 mOsm/kg (285-295); Potassium 3.6 mmol/L (3.5-5.1); Sodium 139 mmol/L (136-145); Total Protein 7.5 g/dL (6.6-8.7)
[2025-07-02 01:14] LABS: Glucose Urine UA Negative (Normal); Nitrate Urine Negative (Negative); Specific Gravity, Urine 1.024 (1.005-1.030)
[2025-07-02 01:18] LABS: Add Urine Microscopic? YES
[2025-07-02 01:40] LABS: UA Slide Review UA Slide Review Perf
--- NOTE | 2025-07-02 01:55 | ECG_ITS ---
[facility] Test Date: 2025-07-02 Pat Name: Katina Huffman Department: Room: 278 Gender: Female Manager Account Management: : 1965 Requested By: Camille Ndiaye Order Number: [id number] Chata MD: Juan Ramon Mendez M.D. Measurements Intervals [place] Rate: 73 P: 59 [place]: 174 QRS: -62 QRSD: 167 T: 23 QT: 491 QTc: 543 Interpretive Statements SINUS RHYTHM RIGHT BUNDLE BRANCH BLOCK [120+ ms QRS DURATION, UPRIGHT V1, 40+ ms S IN I/aVL/V4/V5/V6] LEFT ANTERIOR FASCICULAR BLOCK [QRS AXIS <= -45, QR IN I, RS IN II] POSSIBLE ANTERIOR MYOCARDIAL INFARCTION , OF INDETERMINATE AGE [30 ms Q WAVE IN V3/V4, OR R < 0.2 mV IN V4] MODERATE T-WAVE ABNORMALITY, CONSIDER LATERAL ISCHEMIA [-0.1+ mV T-WAVE IN I/aVL/V5/V6] Compared to ECG 07/01/2025 23:22:16 Myocardial infarct finding now present T-wave abnormality now present Possible ischemia now present Electronically Signed On 07-03-2025 19:46:30 HEEL SHAPER by Juan Ramon Mendez M.D. [email or web address]
[2025-07-02 02:01] LABS: Troponin 5 2HR 18.42 ng/L (0-10)
--- NOTE | 2025-07-02 02:02 | USR_ITS ---
PROCEDURE INFORMATION: Exam: US Retroperitoneal, Complete, Kidneys and Bladder Exam date and time: 07/02/2025 2:44 AM Age: 60 years old Clinical indication: Other: Govind, UTI TECHNIQUE: Imaging protocol: Real-time ultrasound of the retroperitoneum with image documentation. Complete exam focused on the bilateral kidneys and urinary bladder. COMPARISON: No relevant prior studies available. FINDINGS: Right kidney: The right kidney measures 10.9 x 5.6 x 6.1 cm. Normal renal echogenicity and echotexture. Normal cortical thickness. No hydronephrosis, nephrolithiasis, or solid renal mass is noted. Left kidney: The left kidney measures 10.7 x 6.0 x 6.0 cm. Normal renal echogenicity and echotexture. Normal cortical thickness. No hydronephrosis, nephrolithiasis, or solid renal mass is noted. Urinary bladder: Urinary bladder diverticula are present. Echogenic debris is noted within the urinary bladder, which may represent a component of urinary stasis. The patient was unable to void. No ureteral jets are identified. US/US renal BI* [id number] IMPRESSION: 1. No sonographic abnormality of the kidneys. 2. Distended urinary bladder with multiple diverticula and lack of ureteral jets over an extended period of time. The patient was unable to void. Correlate for urinary retention. Correlate with urinalysis to exclude urinary tract infection given small volume bladder debris.
[2025-07-02 02:03] LABS: Troponin 5 2HR Delta -0.58 ABS# (0-10)
--- NOTE | 2025-07-02 03:37 | USCV_ITS ---
Katina Huffman Age: 60 Gender: F : 1965 Exam Date: 07/02/2025 09:44 Ordering Phys: Randell Nair MD Technologist: ALMAS [place] [facility] [place]ication: Syncope Risk Factors: Previous Vascular Surgery: Right Brachial BP: / Left Brachial BP: / Right Left Velocity (cm/s) Spectral Plaque Velocity (cm/s) Spectral Plaque Syst/Diast Broadening Syst/Diast Broadening 72.60/ 15.50 Prox CCA 143.60/ 29.00 94.40/ 20.60 Mid CCA 131.30/ 36.40 98.30/ 19.30 Distal CCA 149.90/ 33.40 51.30/ 9.90 Prox ICA 80.90 / 14.70 74.60/ 13.00 Mid ICA 82.00 / 12.70 83.80/ 23.00 Distal ICA 69.60 / 16.10 131.20 ECA 178.50 0.50 ICA/CCA 0.50 Antegrade Vertebral Antegrade 60.00/ 13.10 cm/s 88.30/ 17.50 cm/s Tri Subclavian Tri 192.7 184.0 0 0 FINDINGS Comparison: none available. No significant elevation of systolic or diastolic velocities. Diffuse, mild bilateral scattered calcified plaque and intimal thickening throughout the common carotid arteries and extending through the bifurcation. Antegrade vertebral arteries. CONCLUSIONS Bilateral ICA stenosis less than 50%. Mild carotid atherosclerosis. Dr. Naz Lin DO (Electronically Signed) Final Date: 02 July 2025 10:09 S
--- NOTE | 2025-07-02 03:37 | USCV_ITS ---
Katina Huffman Age: 60 Gender: F : 1965 Exam Date: 07/02/2025 09:22 Ordering Phys: Randell Nair MD Technologist: ALMAS [place] [facility] [place]ication: Syncope BP: 90 / 60 HR: 68 Rhythm: Sinus Technical Quality: Adequate MEASUREMENTS (Male / Female) Normal Values 2D ECHO LV Diastolic Diameter PLAX 6.5 cm 4.2 - 5.9 / 3.9 - 5.3 cm IVS Diastolic Thickness 0.8 cm 0.6 - 1.0 / 0.6 - 0.9 cm IVS Systolic Thickness 0.8 cm LVPW Diastolic Thickness 1.0 cm 0.6 - 1.0 / 0.6 - 0.9 cm LVPW Systolic Thickness 0.8 cm LVOT Diameter 2.2 cm LV Ejection Fraction 2D Teich 18.2 % LV Ejection Fraction MOD 4C 59.1 % LV Ejection Fraction MOD 2C 56.9 % LV Ejection Fraction 2C AL 55.4 % LA Diameter 3.8 cm RA Systolic Volume 4C AL 38.7 ml RA Systolic Volume 4C MOD 36.1 ml LA Sys Volume AL 72.1 cm cubed LA Sys Volume Index AL 25.4 cm cubed/m squared Aorta at Sinotubular Diameter 2.4 cm M-MODE LA Ao Ratio MM 1.8 AV Cusp Separation MM 1.5 cm DOPPLER AV Peak Velocity 147.0 cm/s LVOT Peak Velocity 80.0 cm/s AV Area Cont Eq vti 2.7 cm squared AV Area Cont Eq pk 2.0 cm squared MV Peak Velocity 75.0 cm/s MV Area PHT 4.2 cm squared Mitral E to A Ratio 0.7 TR Peak Velocity 117.0 cm/s TR Peak Gradient 5.5 mmHg TV Peak E Velocity 66.0 cm/s PV Peak Velocity 120.0 cm/s FINDINGS Left Ventricle Technically limited quality echocardiogram. LV systolic function is normal. Grade 1 diastolic dysfunction Right Ventricle Normal in size and function Right Atrium Normal in size Left Atrium Dilated IA Septum Grossly normal Mitral Valve Grossly normal. Mild mitral regurgitation Aortic Valve Grossly normal. No significant stenosis or regurgitation Tricuspid Valve Insufficient TR jet to calculate RVSP Pulmonic Valve Not well visualized Pericardium Normal Aorta Normal in size IVC Not visualized CONCLUSIONS Technically limited quality echocardiogram. LV systolic function is normal. Grade 1 diastolic dysfunction. Left atrium is dilated. Mild mitral regurgitation. Juan Ramon Mendez MD (Electronically Signed) Final Date: 03 July 2025 12:44 S
[2025-07-02 03:49] LABS: Lactic Sepsis W/Reflex 3.2 mmol/L (0.5-2.2)
[2025-07-02 03:49] LABS: Partial Thromboplastin Time 24.4 SECONDS (23.9-36.7)
[2025-07-02 03:51] LABS: Reflex Lactate Order REFLEX LACTIC ORDERD
[2025-07-02 04:02] LABS: NT Pro B Type Natriuretic Pept 113 pg/mL (0-125); Procalcitonin 0.22 ng/mL (0-0.5)
[2025-07-02 04:08] LABS: Thyroid Stimulating Hormone 1.47 uIU/mL (0.27-4.20)
[2025-07-02] MEDS: ondansetron 2 mg/ML SDV 2 mL 4 MG IVP (04:24)
[2025-07-02] MEDS: pantoprazole 40 mg SDV IVP (04:24)
[2025-07-02] MEDS: cefTRIAXone 1,000 mg SDV 1000 MG IVP (04:24)
[2025-07-02 05:22] LABS: Lactic Acid level (Lactate) 2.4 mmol/L (0.5-2.2)
--- NOTE | 2025-07-02 06:13 | P.HP_ITS ---
Providers/Chief Complaint 2 Admitting Physician: Randell Nair MD Primary Care Provider: Martín Duarte MD Chief Complaint: odd feeling in head, passed out and fell History of Present Illness Katina Huffman is a 60 year old female who presents [facility] for dizziness, vertigo, unsteadiness. Currently patient is alert oriented x 3, following all commands, no dizziness, no vertigo, no unsteadiness, no facial droop, slurring her words, she is following all commands. She tells me that this morning when she woke up, she had dizziness, vertigo, she woke up about 2 PM this morning, she tells me she got up out of bed she was unsteady on her feet, she denied any paresthesias, no focal weakness, no lightheadedness, no dizziness, no chest pain, no palpitations. She denies a history of strokes, no history of CAD. She tells me that in the afternoon, she was walking in her hallway she was noticing that she was unsteady on her feet and she passed out, she remembers falling to the ground, she thinks she hit her head, she is able to get up off the ground with the help of family, she also noticed tinnitus that was transient, Review of Systems 2 Const: Denies: fever(s) or chills Eyes: Reports: change in vision Card: Denies: chest pain Resp: Denies: dyspnea Medications/Allergies Allergies Allergy/AdvReac Type Severity Reaction Status Date / Time No Known Allergies Allergy Verified 07/01/25 23:13 Vitals/I&O/Wt Last Vital Signs Temp 98.2 F 07/02/25 03:52 Pulse 85 07/02/25 03:52 Resp 20 H 07/02/25 03:52 BP 100/70 07/02/25 03:52 Pulse Ox 98 07/02/25 03:52 O2 Del Method Room Air 07/02/25 03:52 Weight last 48 hrs Weight 158.667 kg Weight 155.582 kg Physical Exam 2 Const: COMMON NORMALS: no acute distress and patient oriented x3 Eye: COMMON NORMALS: Equal, round and reactive pupils present and EOMs intact bilaterally Resp: COMMON NORMALS: normal respiratory effort, No retractions, No use of accessory muscles and clear to auscultation bilaterally AUSCULTATION: clear to auscultation bilaterally Cardio: COMMON NORMALS: no JVD, regular rate, regular rhythm, S1 normal heart sound present and S2 normal heart sound present RATE: regular rate RHYTHM: regular rhythm HEART SOUNDS: S1 normal heart sound present and S2 normal heart sound present GI: COMMON NORMALS: Normal to inspection, nondistended, normoactive bowel sounds present, Soft to palpation and non-tender Extremity: COMMON NORMALS: no pedal edema Neuro: COMMON NORMALS: patient oriented x3, CN's II-XII intact bilaterally and moves all extremities OTHER: Nmostm-sn-vgsa equal bilaterally Psych: COMMON NORMALS: mental status grossly normal Data 07/01/25 23:20 07/01/25 23:20 A&P Assessment and plan 1. Syncope: 2. JAI (acute kidney injury): 3. Fall: 4. Vertigo: 5. Difficulty walking: Plan: Urinary tract infection - IV Rocephin Acute kidney injury - IV fluids - Check CPK levels - Renal ultrasound Vertigo, dizziness - Combination of JAI, UTI - However given the sudden onset, and her complaints of unsteadiness on her feet suspicious for posterior circulation stroke - Cannot do a CTA head and neck - NIH stroke scale during my evaluation is 0 - Aspirin, statin - Cardiac echo, carotid ultrasound - PT OT Syncope - Cardiac echo, carotid ultrasound, telemetry monitoring Full code Lovenox for DVT prophylaxis PDMP PDMP Reviewed: Not Reviewed Attestations 2 Medical Necessity Statement*: Patient requires hospitalization for UTI, JAI, syncope, inpatient, greater than 2 midnights Diagnoses Syncope R55 JAI (acute kidney injury) N17.9 Fall W19.XXXA Vertigo R42 Difficulty walking R26.2
--- NOTE | 2025-07-02 09:29 | PM.MISC ---
Miscellaneous Note Purpose of Documentation: . Patient is seen this morning on the medical floor. She is a 60-year-old female who was admitted because of report of dizziness and giddiness with some vertigo. Currently, she reports feeling better while in bed. She has no new complaints. On Exam: General: Awake and alert. Cooperative. Respiration: No obvious respiratory distress. Abdomen: Soft. Non-distended. Non-tender. Extremities: No obvious pitting pedal edema. Skin: No obvious new rashes or any unusual skin lesion(s). Further Consideration & Recommendations: The later nurse informs me that patient's blood pressures are running very low. It was taking below 90/60 on multiple occasions in the afternoon Upon review, also noticed some apparent signs of renal failure. Given her symptoms, and the hypotension, I think her symptoms are more due to hypovolemia; or some prerenal etiology As a result, one-time bolus of 1L of normal saline ordered, to be followed with IV normal saline infusion running at 125 cc/h. I will be make further changes as needed. Otherwise, the notes of the admitting physician is reviewed. Will make further changes as clinically patient evolves. Otherwise, I agree with the rest of the recommendations of Dr. Marcelo, the admitting physician.
[2025-07-02 10:50] LABS: Anion Gap 21.0 (5-19); Blood Urea Nitrogen 55 mg/dL (8-23); Calcium 9.5 mg/dL (8.5-10.5); Carbon Dioxide 19 mmol/L (22-29); Chloride 101 mmol/L (98-107); Glucose 99 mg/dL (65-115); Osmolality Calculated 299 mOsm/kg (285-295); Potassium 4.0 mmol/L (3.5-5.1); Sodium 137 mmol/L (136-145)
[2025-07-02] MEDS: morphine 4 mg/mL SDV 1 mL 2 MG IVP (16:01)
[2025-07-03] VITALS (12 sets, daily range): BP systolic 77–120; BP diastolic 41–64; PULSE 61–70; RESP 15–32; TEMP 36.4–37; O2SAT 90–100
[2025-07-03] MEDS: pantoprazole 40 mg SDV IVP (04:37)
[2025-07-03] MEDS: cefTRIAXone 1,000 mg SDV 1000 MG IVP (04:38)
[2025-07-03 05:58] LABS: Hematocrit 34.3 % (36-47); Hemoglobin 11.10 g/dL (11.27-16.99); Mean Corpuscular HGB Conc 32.4 g/dL (30-55); Mean Corpuscular Hemoglobin 32.0 pg (27-33); Mean Corpuscular Volume 98.8 fl (85-98); Nucleated Red Blood Cells % 0 %; Platelet Count 99 10^3/cmm (157-399); Red Blood Count 3.47 10^6/uL (3.85-5.65); White Blood Count 6.20 10^3/uL (3.29-11.43)
[2025-07-03 06:07] LABS: Alanine Aminotransferase 21 U/L (0-33); Albumin Level 3.3 g/dL (3.5-5.2); Alkaline Phosphatase 41 U/L (35-105); Aspartate Amino Transferase 21 U/L (0-32); Blood Urea Nitrogen 49 mg/dL (8-23); Calcium 8.9 mg/dL (8.5-10.5); Carbon Dioxide 20 mmol/L (22-29); Chloride 103 mmol/L (98-107); Globulin 3.4 g/dL (1.3-4.6); Glucose 97 mg/dL (65-115); Magnesium 2.1 mg/dL (1.7-2.3); Osmolality Calculated 301 mOsm/kg (285-295); Sodium 139 mmol/L (136-145); Total Protein 6.7 g/dL (6.6-8.7)
[2025-07-03 06:08] LABS: Anion Gap 19.7 (5-19); Potassium 3.7 mmol/L (3.5-5.1)
[2025-07-03 10:42] LABS: ABG PCO2 40.6 mmHg (35-45); ABG PH Result 7.35 (7.35-7.45); Alveolar-Arterial Oxygen Gradi 4.4 mmHg (5-10); Arterial Blood Gas Hematocrit 33.1 % (37-47); Blood Gas Allen Test Pos; Blood Gas Operator Identificat WALCI; Blood Gas Sample Site Brachial, right; Blood Gas Sample Type Arterial; Carboxyhemoglobin 1.5 %THgb (0.4-20.1); Glucose Level-ABG 112.0 mg/dL (70-115); HCO3 ABG 22.4 mmol/L (22-26); Ionized Calcium Level - ABG 1.2 mmol/L (1.1-1.4); Methemoglobin 0.5 % (0.4-1.5); Oxygen Saturation ABG 94.1; PO2 ABG 66.2 mmHg (80.0-100.0); PO2 FiO2 Ratio Arterial Blood 315; Potassium Level - ABG 3.9 mmol/L (3.5-5.0); Sodium Level - ABG 137.0 mmol/L (131-143)
--- NOTE | 2025-07-03 11:46 | P.PN_ITS ---
Subjective 2 Subjective: . Patient seen again this morning. She denies any new complaints. However, the nurse and family patient has not been making any urine in the last 12 hours, despite being on the Kraft catheter. Patient is a complete unremarkable test. Her blood pressures have been running low for the most part, as informed by the nurse. She denies any cough, headache, fever, abdominal pain, diarrhea, constipation, or any systemic or organ symptoms. Medications: Medication Review Details: IV ceftriaxone, plus aspirin and DVT prophylaxis with Lovenox. Other as needed medications also going on Vitals/I&O/Wt Last Vital Signs Temp 98.2 F 07/03/25 11:27 Pulse 61 07/03/25 11:27 Resp 18 07/03/25 11:27 BP 101/64 07/03/25 11:27 Pulse Ox 96 07/03/25 11:27 O2 Del Method Room Air 07/03/25 11:27 07/02/25 07/03/25 07/03/25 22:59 06:59 14:59 Intake Total 19990 480 / 3200 1480 / 1480 Balance 19990 480 / 3200 1480 / 1480 Weight last 48 hrs Weight 158.304 kg Weight 158.304 kg Weight 158.667 kg Weight 155.582 kg Physical Exam 2 Narrative: General: Awake and alert obese patient, lying quietly in bed. No obvious respiratory distress. Neuro/Psych: Cooperative. Oriented x 3 Chest/Resp: Bilateral equal air entry; chest clinically clear. CVS: Rhythm: Regular heart rate and rhythm. No obvious murmurs appreciated. GI: Soft and non-tender abdomen. No obvious organomegaly. UGS: Urine catheter continues some vicky color looking urine. No obvious CVA tenderness Extremities: Bilateral equal pulses. No obvious pitting pedal edema. Skin: Remarkably dry mucous membrane, with increased skin turgor. Urinary Catheter Management: 2-way Urethral: Cath Placed During This Visit: yes Reason for Continuing Indwelling Catheter: Acute Urinary Retention or Obstruction Urinary Catheter Date of Insertion: 07/02/25 Urinary Catheter Time of Insertion: 18:06 Data 07/03/25 05:24 07/03/25 05:24 US: Radiologist's impression: 1. No sonographic abnormality of the kidneys. 2. Distended urinary bladder with multiple diverticula and lack of ureteral jets over an extended period of time. A&P Assessment and plan 1. Acute renal failure with oliguria: 2. Hypotension, unspecified: 3. Acute UTI: Plan: Patient symptoms are obviously explained by the hypotension that she presented with. She definitely did not have a stroke; I have clearly explained that to her. The syncope, dizziness and giddiness, if anything, is provoked by the hypotension What I am not sure at this time is the most likely cause of the hypotension. I suspect iatrogenic etiology, given the patient is on lisinopril and the hydrochlorothiazide. However, the dose of the hydrochlorothiazide and lisinopril are too low to perfectly cause such a level of hypotension in such a nearly 160 kg patient. She definitely looks remarkably dehydrated. So, hypovolemia could be one of the main contributing or compounding factors. Another potential/possisble cause of this is urosepsis, given the positive findings of the urinalysis. However, she doesnt have any culpable urinary symptoms. More so, she does not look any toxic for one to significantly or reasonably suspect that she is septic. Having considered hypovolemia to be the main factor, as a result, I am going to aggressively rehydrate patient w/ IV fluids, and see how she responds to the fluid boluses and fluids challenge. So, she got 1 L bolus immediately after the rounds in the morning, which is followed by infusion of 250 cc of saline per hour. Will continue to follow BPs, and will repeat boluses if the BP is drops below 90/60. Monitor urine output anf input closely (q.4 hrs), and make further changes as clinical picture evolves. Continue to hold lisinopril and hydrochlorothiazide. Continue to wait for urine culture result, and continue patient on the IV Rocephin at this time, pending final culture result. If patient is not able to respond to the fluid boluses of fluid infusion, we may have to put her on some Levophed. Repeat BMP later in the evening, and take it from there. If BMP shows worsening kidney function, I may have to consult nephrology. In the meantime, we will stay away from any potentially nephrotoxic medications. Meanwhile, she has been moved to the stepdown Unit, where we will monitor closely. Further plans to be adjusted as clinical picture evolves. PDMP PDMP Reviewed: Not Reviewed Attestations 2 Medical Necessity Statement*: Patient is currently oliguric, hypotensive, and this is doing acute renal failure. She will require at least 2 more hospital stay, so as to adequately treat her acute problems, and optimize safety for discharge. See Assessment and Plan above. Coding Level of Care Code Acute Code for Chg Fwd Diagnoses Acute renal failure with oliguria N17.9; R34 Hypotension, unspecified I95.9 Acute UTI N39.0
--- NOTE | 2025-07-03 12:29 | PC.NURSE ---
Patient received from [facility] via wheelchair. Fluids running at 250ml/hr. Observed ~300cc of urine in angela. Patient denies pain presently. Current BP is 105/59
--- NOTE | 2025-07-03 14:07 | PC.NURSE ---
patient continues with decreased BP. Dr Franco in room. Received verbal order to give 1L NS bolus at this time.
[2025-07-03 19:08] LABS: Anion Gap 16.1 (5-19); Blood Urea Nitrogen 47 mg/dL (8-23); Calcium 8.9 mg/dL (8.5-10.5); Carbon Dioxide 21 mmol/L (22-29); Chloride 107 mmol/L (98-107); Glucose 104 mg/dL (65-115); Osmolality Calculated 303 mOsm/kg (285-295); Potassium 4.1 mmol/L (3.5-5.1); Sodium 140 mmol/L (136-145)
[2025-07-03] MEDS: ondansetron 2 mg/ML SDV 2 mL 4 MG IVP (20:12)
[2025-07-04 03:51] LABS: Alanine Aminotransferase 18 U/L (0-33); Albumin Level 3.1 g/dL (3.5-5.2); Alkaline Phosphatase 40 U/L (35-105); Anion Gap 13.1 (5-19); Aspartate Amino Transferase 16 U/L (0-32); Blood Urea Nitrogen 37 mg/dL (8-23); Calcium 9.0 mg/dL (8.5-10.5); Carbon Dioxide 23 mmol/L (22-29); Chloride 110 mmol/L (98-107); Globulin 3.0 g/dL (1.3-4.6); Glucose 91 mg/dL (65-115); Osmolality Calculated 302 mOsm/kg (285-295); Potassium 4.1 mmol/L (3.5-5.1); Sodium 142 mmol/L (136-145); Total Protein 6.1 g/dL (6.6-8.7)
[2025-07-04] MEDS: metoclopramide 5 mg/mL SDV 2 mL IVP ×3 (04:16→20:59)
[2025-07-04] MEDS: pantoprazole 40 mg SDV IVP (04:17)
[2025-07-04] MEDS: cefTRIAXone 1,000 mg SDV 1000 MG IVP (04:18)
[2025-07-04 05:02] VITALS: BP 118/72; PULSE 71; RESP 22; O2SAT 93
[2025-07-04 06:31] LABS: Hematocrit 33.9 % (36-47); Hemoglobin 10.80 g/dL (11.27-16.99); Mean Corpuscular HGB Conc 31.9 g/dL (30-55); Mean Corpuscular Hemoglobin 32.1 pg (27-33); Mean Corpuscular Volume 100.9 fl (85-98); Nucleated Red Blood Cells % 0 %; Platelet Count 93 10^3/cmm (157-399); Red Blood Count 3.36 10^6/uL (3.85-5.65); White Blood Count 5.13 10^3/uL (3.29-11.43)
--- NOTE | 2025-07-04 06:40 | PC.NURSE ---
0445- Obtaining vitals and doing AM med pass. Patient asked if she could sit on side of bed to induce emesis. Offered zofran to patient, per patient that did not work earlier. Notified Dr. Nair and received orders for 5 mg reglan IVP PRN Q6hr. Also notified Dr. Nair regarding low platelets of 99 and have a 30 mg of lovenox due. Per okay to give lovenox and order a cbc.
[2025-07-04 07:14] VITALS: BP 118/72; BP 127/79; PULSE 61; PULSE 72
[2025-07-04 07:21] VITALS: BP 123/60; PULSE 64; RESP 16; TEMP 36.3; O2SAT 94
--- NOTE | 2025-07-04 09:24 | P.PN_ITS ---
Subjective 2 Subjective: Seen again this morning on the medical floor, patient reports feeling much better. She was having breakfast, and reports feeling overall good. She has been making good urine output, and has been having normal BP readings so far. At about 7 PM last night, there was about 12 hours ago, I have reviewed patient briefly. The BMP was still pending, but her blood pressures have remained remarkably stable, with numbers in the 110s/60. Consequently, I had reduced the IV fluid rate, while continuing to monitor closely. On further elucidation, patient further clarified that she has started taking Ozempic about 2 months ago. for weight loss. Since then, she has been having increasing anorexia, plus severe nausea, with associated vomiting on occasions when she forces fluids. As result, she has been having very little oral intake of fluid in recent weeks. This is in addition to the hydrochlorothiazide/lisinopril that she takes for hypertension. She reports having lost significant weight in recent months since starting the Ozempic. She does not check her BP at home, and does not know what her baseline has been in the last few weeks. Vitals/I&O/Wt Last Vital Signs Temp 97.4 F L 07/04/25 07:21 Pulse 64 07/04/25 07:21 Resp 16 07/04/25 07:21 BP 123/60 07/04/25 07:21 Pulse Ox 94 07/04/25 07:21 O2 Del Method Room Air 07/04/25 07:21 O2 Flow Rate 2 07/04/25 05:02 07/03/25 07/04/25 07/04/25 22:59 06:59 14:59 Intake Total 602.083 / 4480.000 1000 / 5480.000 Output Total 750 / 1000 1600 / 2600 Balance -147.917 / 3480.000 -600 / 2880.000 Weight last 48 hrs Weight 163.5 kg Weight 158.304 kg Physical Exam 2 Narrative: General: Awake and alert. Quiet in bed, having b/fast. Cooperative. Chest/Resp: Normal respiratory chest movts; no obvious respiratory distress. CVS: Rhythm: Regular heart rate and rhythm. GI: Non-distended; No obvious organomegaly. Extremities: No obvious pitting pedal edema. Skin: No obvious new rashes or new skin lesions. Urinary Catheter Management: 2-way Urethral: Cath Placed During This Visit: yes Reason for Continuing Indwelling Catheter: Accurate Measurement of Urinary Output in Critically Ill Patients Urinary Catheter Date of Insertion: 07/02/25 Urinary Catheter Time of Insertion: 18:06 Data 07/04/25 05:55 07/04/25 03:04 Micro: Microbiology 07/02/25 01:00 Urine Culture - Final Urine,Clean Catch Strep agalactiae - (group b) A&P Assessment and plan 1. Acute UTI: Currently on Rocephin for this. In the absence of urinary symptoms, plus likely false negative urine culture, UTI he is hereby ruled out. I will go ahead and discontinue the Rocephin. 2. Hypovolemia dehydration: Apparently due to poor oral intake, while being on antihypertensive medications. Resolved at this time. 3. Hypotension, unspecified: Also resolved, and most likely caused by #2 above plus current use of antihypertensive medications. 4. Acute renal failure with oliguria: The oliguria is resolved completely. BUN and creatinine looking much better today. Continue ongoing IV rehydration at 125 cc/h x 2 more liters, at most. Recheck BMP in the morning, and discharge patient if this continues to look well. 5. Essential hypertension: See #2, 3 and 4 above. Upon discharge, patient may not need to be continued on the current dose of antihypertensives. 6. Obesities, morbid: Updated the and advisement, especially, given the patient is currently getting some Ozempic for this. Given poor tolerance to Ozempic, patient may need to follow-up with PCP for further adjustment of these. In the media, given reported nausea and vomiting and unguinal put patient on Reglan, just in case there may be a component of gastroparesis. Plan: Patient definitely doing much better today. Like patient, I will rehydrate for about 10 to 14 hours small with IV fluid, and then decrease. Recheck BMP in the morning. Anticipate discharge in the morning. Continued ongoing treatment plans. PDMP PDMP Reviewed: Not Reviewed Attestations 2 Medical Necessity Statement*: Patient is still uremic, though obviously looking better. [place] therefore will need continued IV rehydration, and recheck of BMP in the morning. As a result, patient will require least 1 more day of hospital stay before discharge. Coding Level of Care Code Acute Code for [facility] Diagnoses Acute UTI N39.0 Hypovolemia dehydration E86.1 Hypotension, unspecified I95.9 Acute renal failure with oliguria N17.9; R34 Essential hypertension I10 Obesities, morbid E66.01
[2025-07-04 09:55] VITALS: BMI 56.7
[2025-07-04 11:41] VITALS: BP 137/74; PULSE 68; RESP 17; TEMP 36.2; O2SAT 97
--- NOTE | 2025-07-04 14:03 | PC.PT ---
PT eval ordered and attempted at 1359. Nurse stated pt had been sitting up in chair at bedside this am and has just gotten back to bed with nurse assist and took nausea meds. Nurse recommended to not get pt back up at this time but wait until tomorrow. I spoke to pt about any immediate mobility needs and she stated none, and requested no PT eval at this time. I notified that no PT on Sundays and nurse and pt stated ok and will wait until Sunday.
[2025-07-04 15:57] VITALS: BP 142/71; PULSE 77; RESP 24; O2SAT 93
[2025-07-04 19:35] VITALS: BP 102/60; PULSE 75; RESP 15; TEMP 36.6; O2SAT 99
[2025-07-05] VITALS: BP 163/89; PULSE 63; RESP 20; O2SAT 92
[2025-07-05 03:45] VITALS: BP 136/80; PULSE 63; RESP 21; TEMP 36.9; O2SAT 95
[2025-07-05 04:08] LABS: Alanine Aminotransferase 16 U/L (0-33); Albumin Level 3.2 g/dL (3.5-5.2); Alkaline Phosphatase 39 U/L (35-105); Anion Gap 11.1 (5-19); Aspartate Amino Transferase 16 U/L (0-32); Blood Urea Nitrogen 22 mg/dL (8-23); Calcium 9.0 mg/dL (8.5-10.5); Carbon Dioxide 25 mmol/L (22-29); Chloride 111 mmol/L (98-107); Globulin 2.9 g/dL (1.3-4.6); Glucose 94 mg/dL (65-115); Osmolality Calculated 299 mOsm/kg (285-295); Potassium 4.1 mmol/L (3.5-5.1); Sodium 143 mmol/L (136-145); Total Protein 6.1 g/dL (6.6-8.7)
[2025-07-05] MEDS: pantoprazole 40 mg SDV IVP (04:28)
[2025-07-05] MEDS: metoclopramide 5 mg/mL SDV 2 mL IVP (05:52)
[2025-07-05 08:00] VITALS: BP 130/84; PULSE 63; RESP 20; TEMP 36.6; O2SAT 96
--- NOTE | 2025-07-05 10:02 | PM.DCS ---
Discharge Providers Date of Admission: 07/02/25 01:12 Date of Discharge: July 05, 2025 Attending Provider at Admission: Randell Nair MD Attending Provider at Discharge: Júnior Franco MD Primary Care Provider: Martín Duarte MD Diagnoses at Discharge Discharge Diagnosis 1. Hypovolemia dehydration: 2. Hypotension, unspecified: 3. Acute renal failure with oliguria: 4. Acute UTI: 5. Essential hypertension: 6. Obesities, morbid: Reason for Visit Reason for Visit: odd feeling in head, passed out and fell Brief History: Patient presented with complaint of dizziness and giddiness, and fall at home. Currently in ER, she was found to be hypotensive. Consequently she was admitted and closely monitored. Initially thought to have syncope, carotid Doppler ultrasound and echocardiogram revealed no significant findings. Hospital Course Hospital Course By the next day, patient was found to have severe oliguria, with persistently low BPs. She was found to be severely dehydrated, and which esplains the acute renal failure. Consequently, she was given several boluses of normal saline, as well as fluid challenge at a very high rate. By the next day, which was after about 48 hours of hospital stay, patient began to make good amount of urine per hour, and had the BP remain WNLs & very stability. We further monitored the BUN and creatinine levels, all of which gradually improved. As of today, patient's BP has been stable and normal for more than 24 hours, while the BUN and creatinine for return to normal levels. meanwhile, patient's hydrochlorothiazide/lisinopril, suspected to be contributing to symptomatology, were held al through the hospital stay. It was also confirmed the patient has been having poor oral intake in recent weeks, because from side effect of Ozempic which she takes. Meanwhile, upon admission, patient was noted to have some abnormal urinalysis, and therefore leading to suspicion of UTI. Rocephin was started for this. Urine culture grew strep agalactiae, which is thought to be contamination. However, patient is discharged on amoxicillin for this. Overall, given stable symptoms, she is hereby discharged today. See my discharge orders and discharge instructions for more details. Physical Exam Narrative: General: Awake and alert. Cooperative. Chest/Resp: Normal respiratory chest movts; no obvious respiratory distress. CVS: Rhythm: Regular heart rate and rhythm. GI: Non-distended; No obvious organomegaly. Extremities: No obvious pitting pedal edema. Skin: No obvious new rashes or new skin lesions. Urinary Catheter Management: 2-way Urethral: Cath Placed During This Visit: yes Reason for Continuing Indwelling Catheter: Accurate Measurement of Urinary Output in Critically Ill Patients Urinary Catheter Date of Insertion: 07/02/25 Urinary Catheter Time of Insertion: 18:06 Discharge Data Studies Completed and Pending Completed Studies During Hospitalization Category Date Time Status CT head wo con* [id number] Stat Cat Scan 07/01/25 23:55 Completed XR knee RT 3V* [id number] Stat Exams 07/01/25 23:57 Completed CV carotid duplex BI* [id number] Routine Ultrasound 07/02/25 03:37 Completed CV. echo complete* [id number] Routine Ultrasound 07/02/25 03:37 Completed US renal BI* [id number] Stat Ultrasound 07/02/25 02:02 Completed Pending at discharge Category Date Time Status Blood Culture Stat Lab 07/02/25 04:53 Received Radiology Impressions Head CT 07/01/25 23:55 IMPRESSION: No acute intracranial hemorrhage. No midline shift or mass effect. Knee X-Ray 07/01/25 23:57 IMPRESSION: Severe joint space narrowing of the medial compartment. Tricompartmental osteophytic spurring. No acute fracture or dislocation. Renal Ultrasound 07/02/25 02:02 IMPRESSION: No sonographic abnormality of the kidneys. Distended urinary bladder with multiple diverticula and lack of ureteral jets over an extended period of time. Laboratory Results Date BUN Creatinine 07/01/25 55 4.4 07/03/25 49 4.7 07/05/25 22 1.2 Vitals Last Vital Signs Temp 97.9 F 07/05/25 08:00 Pulse 63 07/05/25 08:00 Resp 20 H 07/05/25 08:00 BP 130/84 07/05/25 08:00 Pulse Ox 96 07/05/25 08:00 O2 Del Method Room Air 07/05/25 03:45 O2 Flow Rate 2 07/04/25 05:02 Discharge Plan Discharge Patient Disposition: Home Condition: Stable Prescriptions: New lisinopril 10 mg tablet 10 mg PO DAILY Qty: 30 1RF metoclopramide HCl [Reglan] 5 mg tablet 5 - 10 mg PO TID PRN (Reason: nausea and vomiting) Qty: 30 3RF amoxicillin 250 mg capsule 250 mg PO Q6H Qty: 20 0RF Continued atorvastatin 20 mg tablet 20 mg PO DAILY famotidine 20 mg Tablet 20 mg PO BID gabapentin 300 mg capsule 600 mg PO BEDTIME Ozempic 1 mg/dose (4 mg/3 mL) pen injector 1 mg SUBCUT Q7D Discontinued lisinopril-hydrochlorothiazide 20-12.5 mg tablet 1 tab PO DAILY Discharge Order = DC NOW: Discharge Order (Routine); Ordered 07/05/25 Ordered By: Júnior Franco Referrals: Martín Duarte MD [Primary Care Provider, Family Practice] - 07/09/25 10:45 am Discharge Diet: Usual diet Discharge Activity: Resume usual activity Patient Instructions: Lisinopril (By mouth) (Prinivil, Zestril), Metoclopramide (By mouth) (Metozolv ODT, PCP 100, Reglan), Dehydration (DC), Acute Kidney Injury (DC), Urinary Tract Infection in Women (DC), Hypotension (DC), Opioid Safety, Patient Portal & [facility]ella Instructions Activity Restrictions/Additional Instructions: Follow-up with primary care provider for further advice about further medication. Otherwise, the current high dose of HCTZ-lisinopril is stopped, replaced with lisinopril 10mg only. Advised to skip the lisinopril if not well-hydrated or having similar symptoms of hypotension. Discharge Attestations Time Spent in Discharge Care*: less than 30 min Quality Metrics Clinical Quality Measures [ No reported AMI, CVA or VTE this stay] Coding Level of Care Code Acute Code for Chg Fwd Diagnoses Hypovolemia dehydration E86.1 Hypotension, unspecified I95.9 Acute renal failure with oliguria N17.9; R34 Acute UTI N39.0 Essential hypertension I10 Obesities, morbid E66.01
--- NOTE | 2025-07-05 10:09 | PC.NURSE ---
removed angela catheter. 10 ml removed from the balloon. pt tolerated well
[2025-07-05 11:16] VITALS: BP 130/84; PULSE 67; RESP 20; TEMP 36.6; O2SAT 96
--- NOTE | 2025-07-05 11:19 | PC.NURSE ---
Discharge IV removed from the right forearm. pt tolerated well. cath tip intact. discharge instructions review with patient. No questions about medication changes or plan of care at this time. Verbalized understanding. Pt escorted out to personal vehicle via wheelchair.
== END 2025-07-05 11:19 | disposition home or self-care (01) | DRG 422 ==
LOC: ER 07-02 01:12 → MEDSURG 07-02 01:46 → CSU 07-03 12:21
PROVIDERS: Admitting Provider Family Medicine; Emergency Provider Emergency Medicine; PCP Family Medicine; Visit Provider Family Medicine
DX: E86.1 Hypovolemia (principal); N17.9 Acute kidney failure, unspecified; E86.0 Dehydration; I95.9 Hypotension, unspecified; N39.0 Urinary tract infection, site not specified; I10 Essential (primary) hypertension; E66.01 Morbid (severe) obesity due to excess calories; Z68.43 Body mass index [BMI] 50.0-59.9, adult
CPT/HCPCS: 36415; 36600; 51702; 70450; 73562; 76770; 80048; 80051; 80053; 81001; 82330; 82550; 82805; 83605; 83735; 83880; 84145; 84443; 84484; 85025; 85610; 85730; 86140; 87040; 87086; 93005; 93306; 93880; 94664; 96372; 97110; 97167; 97530; 99285; J0696; J1650; J2270; J2405; J2470; J2765; J7030; J9999